=== PATIENT | female | born 1930 | race Caucasian/White ===

== ENCOUNTER → 2016-12-27 | Day surgery (SDC) | payer OTHER ==
[~2016-12-27] MED LIST: BUPIVACAINE HCL PF 0.75% 30 ML VIAL ONE; EPINEPHrine HCL (1:1000) 30 MG/30 ML VIAL ONE; LACTATED RINGER'S 1000 ML INJ 1,000 ML ONE; LIDOCAINE 1.5%/EPINEPHrine 1:200,000 PF SOLN 30 ML AMP ONE; MIDAZOLAM HCL 2 MG/2 ML VIAL ONE; ONDANSETRON HCL 4 MG/2 ML VIAL IV PUSH ONE; PROPOFOL 100 MG/10 ML INJ IV ONE; ceFAZolin INJ 1,000 MG VIAL ONE
--- NOTE | 2016-12-28 13:26 | MP ---
cc: MIKIE MOORE DATE OF SURGERY: 12/27/2016 PREOPERATIVE DIAGNOSIS Left shoulder massive rotator cuff tear with impingement and superior labral tear. POSTOPERATIVE DIAGNOSIS Left shoulder massive rotator cuff tear with impingement and superior labral tear. SURGEON Dr. Mikie Moore. BROILER CHEF OR COOK EUGENE Ayala BROILER CHEF OR COOK EUGENE Reeves The surgical procedure was assisted by my Advanced Registered Nurse Practitioner. My TEST INSPECTION ENGINEER presence was necessary throughout this case for the manipulation and positioning of the surgical extremity. My TEST INSPECTION ENGINEER was assisting me throughout the duration of this procedure. The skill set of an Advance Registered Nurse Practitioner was medically necessary to complete this procedure. During the surgical case, the quality assurance tech was working at the back table and the Advance Registered Nurse Practitioner was directly assisting me. PROCEDURE Left shoulder arthroscopic repair of massive rotator cuff tear with subacromial decompression and partial acromioplasty. ESTIMATED BLOOD LOSS Minimal. ANESTHESIA Regional and general. PROCEDURE The patient had regional anesthesia performed. She was then brought back to the operative theater. General anesthesia was performed. She was then placed into a lateral decubitus position with an axillary roll and a well-padded down leg. The left arm was placed into 10 pounds of in-line traction. The left upper extremity was prepped and draped in usual sterile fashion. The patient received intravenous Ancef. We made a standard posterior arthroscopic portal for diagnostic arthroscopy. We identified the glenohumeral joint, had minimal grade 1 chondromalacia, no loose bodies in the axillary pouch were noted. There is some fraying around the superior labrum but nothing that required surgical intervention. There was no detachment of the labrum from the glenoid. The biceps tendon had some mild synovitis and some minimal tendinosis but otherwise was intact. We identified her massive rotator cuff tear that was retracted to the glenoid. This encompassed the entire supraspinatus tendon, the infraspinatus tendon was found to be intact. We placed the arthroscope in subacromial space. We performed subacromial decompression and a bursectomy. There was a spur anteriorly which was resected with an oscillating shaver. This gave us better visualization of the tear. The tear was not very mobile. We did need to mobilize it as there was adhesions from the undersurface of the tear to the superior surface of the glenoid. We did need to perform a interval slide as well to mobilize the tendon. We did prepare the proximal humerus with an oscillating shaver and then medialized a little bit of the cartilage to allow for repair. We were able to get fairly good mobilization of the tendon. We then repaired the tendon using an Arthrex suture bridge with two medial corkscrews. We used all four sutures in horizontal mattress stitch fashion. We tied these using arthroscopic knot tying techniques and then we crisscrossed all the sutures and laid them down to two bio swivel locks laterally. The anchors had fair to good purchase but did have good pull up strength when I manually tested them. The patient overall had soft bone. We took final arthroscopic pictures of the final repair. The patient's arm was __dressed after we sutured the arthroscopic portals with 2-0 Vicryl followed by 3-0 Nylon. Postoperative plan is follow massive rotator cuff repair protocol. She is in abduction pillow. MD DOMINIC Todd/ELSY /2:56 PM /12:59 PM
== END | disposition home or self-care (01) ==
LOC: ESDC 12:04
PROVIDERS: ATTEND Orthopaedic Surgery
DX: M75.122 Complete rotator cuff tear or rupture of left shoulder, not specified as traumatic (principal); M75.42 Impingement syndrome of left shoulder; S43.432A Superior glenoid labrum lesion of left shoulder, initial encounter
CPT/HCPCS: 01630; 01991; 29826; 29827; 64417; C1713; J0171; J0690; J2250; J2405; J7120